=== PATIENT | female | born 1995 | race Caucasian/White ===

== ENCOUNTER 2016-06-03 18:50 | Emergency (ER) | payer MEDICAID | END 2016-06-03 20:51 | disposition home or self-care (01) | LOC: ER 18:50 ==

== ENCOUNTER 2016-06-30 22:22 | Emergency (ER) | payer MEDICAID | END 2016-06-30 23:05 | disposition home or self-care (01) | LOC: ER 22:22 | DX: J20.9 Acute bronchitis, unspecified (principal); F17.210 Nicotine dependence, cigarettes, uncomplicated; F41.1 Generalized anxiety disorder; Z79.899 Other long term (current) drug therapy | CPT/HCPCS: 71020; 87880 ==